=== PATIENT | male | born 1960 | race Caucasian/White ===

== ENCOUNTER 2021-02-21 02:37 | Day surgery (SDC) | payer OTHER, SELFPAY ==
[2021-02-09 15:03] VITALS: BMI 20.8
--- NOTE | 2021-02-18 17:45 | WPDANESEPP ---
Anes - Eval Pre Procedure Procedure: Operation Date: 02/21/21 09:45 Proposed Procedures p Screening Colonoscopy - Moshe Obando MD Date/Time: 02/18/21 17:45 Pre Op Diagnosis: hx of colon polyps Patient Data Age: 60 Gender: M Height: 1.65 m Weight: 56.8 kg Allergies Allergy/AdvReac Type Severity Reaction Status Date / Time No Known Allergies Allergy Unknown Verified 02/09/21 15:02 Home Medications Medication Instructions Recorded Confirmed Type sodium,potassium,mag sulfates See Rx Instructions .ROUTE 02/03/21 Rx [Suprep Bowel Prep Kit] .COMPLEX #1 ml aspirin 81 mg PO DAILY 02/09/21 02/09/21 History Patient hx anesthesia problems: none Family hx anesthesia problems: none PMFSH Past Medical History Medical History (Updated 02/18/21 @ 17:45 by Walker Queen DO) Psoriasis Surgical History Surgical History (Updated 02/18/21 @ 17:45 by Walker Queen DO) History of cholecystectomy Social History Social History Years smoked: 40 Smoking status: Current every day smoker Tobacco type: cigarettes Alcohol intake: current Alcohol use details: socially Substance use: never Substance use type: does not use Living arrangements: with family Spiritual care concerns: No Exam Day of Procedure 02/18/21 17:45
[2021-02-21 08:37] VITALS: BP 115/65; PULSE 69; RESP 20; TEMP 36.3; O2SAT 100
[2021-02-21] MEDS: LACTATED RINGERS 1,000 ML 150 ML IV CONT (08:51)
--- NOTE | 2021-02-21 08:58 | WPDGICN ---
Assessment and Plan Assessment and plan (1) Family history of colon cancer in father: Code(s): Z80.0 - Family history of malignant neoplasm of digestive organs Status: Acute Assessment and Plan: Patient has a family history of colon cancer in both father and brother. Plan is for surveillance colonoscopy every 5 years because of this family history. GI Consult Note Consult date/time: 02/21/21 08:58 HPI: Antwan Pal is a 60 year old male presents for screening colonoscopy. Patient's family history is significant both father and brother have had colon cancer. Patient himself had colon polyps at the time of last endoscopy 2015. 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 Patient states that his current weight appetite bowel movements are normal. He denies abdominal pain. He has had no bleeding. Review of Systems Review of Systems: All systems reviewed & are unremarkable except as noted in HPI and below PMFSH Past Medical History Medical History (Updated 02/21/21 @ 08:59 by Moshe Obando MD) Psoriasis Surgical History Surgical History (Updated 02/18/21 @ 17:45 by Walker Queen DO) History of cholecystectomy Social History Social History Years smoked: 40 Smoking status: Current every day smoker Tobacco type: cigarettes Alcohol intake: current Alcohol use details: socially Substance use: never Substance use type: does not use Living arrangements: with family Spiritual care concerns: No Meds Home Medications and Allergies Home Medications Medication Instructions Recorded Confirmed Type aspirin 81 mg PO DAILY 02/09/21 02/21/21 History Allergies Allergy/AdvReac Type Severity Reaction Status Date / Time No Known Allergies Allergy Unknown Verified 02/21/21 08:36 Vital Signs Vital Signs - 24 hr 02/21/21 08:37 Temperature 97.4 F L Pulse Rate 69 Respiratory Rate 20 Blood Pressure 115/65 Pulse Oximetry 100 Exam Narrative: Physical exam reveals patient to be alert. Vital signs stable. HEENT exam is unremarkable. Patient is anicteric. Lungs are clear to auscultation and percussion. Heart is without murmur or extra sounds. Abdominal exam bowel sounds are present soft nontender with no organomegaly. Digital external rectal exam is normal.
--- NOTE | 2021-02-21 09:06 | WPDANESEFPP ---
Anes - Eval Final PreProcedure Day of Procedure 02/21/21 09:06 Patient weight: normal Heart: regular rate and rhythm Lungs: clear to auscultation Airway: Mallampati scale class II Neurological: alert and oriented Last oral intake: >/= 8 hours ASA classification: III Emergent: no Anesthetic plan: proceed Anesthesia type and monitoring: general GIVS and standard monitoring Informed Consent: The patient's anesthetic plan and its attendant risks and benefits were discussed with the patient/family/POA. Questions were solicited and answers provided to the satisfaction of the patient/family/POA.
[2021-02-21 09:40] VITALS: BP 75/54; PULSE 65; RESP 20; O2SAT 100
[2021-02-21 09:50] VITALS: BP 76/53; PULSE 64; RESP 13; O2SAT 100
[2021-02-21 10:00] VITALS: BP 93/56; PULSE 62; RESP 25; O2SAT 100
== END 2021-02-21 10:14 | disposition home or self-care (01) ==
PROVIDERS: Visit Provider Internal Medicine Gastroenterology
PROC: 0DJD8ZZ Inspection of Lower Intestinal Tract, Via Natural or Artificial Opening Endoscopic (ICD-10-PCS; CPT 45378; principal; 2021-02-21 09:45)
DX: Z12.11 Encounter for screening for malignant neoplasm of colon (principal); K62.1 Rectal polyp; D12.8 Benign neoplasm of rectum; K64.8 Other hemorrhoids; K57.30 Diverticulosis of large intestine without perforation or abscess without bleeding; Z80.0 Family history of malignant neoplasm of digestive organs; L40.9 Psoriasis, unspecified; F17.210 Nicotine dependence, cigarettes, uncomplicated; Z90.49 Acquired absence of other specified parts of digestive tract; Z79.82 Long term (current) use of aspirin
CPT/HCPCS: 45385; 88305; J2704; J7120

== ENCOUNTER 2023-09-02 10:33 | Emergency (ER) | payer OTHER, SELFPAY ==
[2023-09-02 10:41] VITALS: BP 145/70; PULSE 72; RESP 16; TEMP 37; O2SAT 100
--- NOTE | 2023-09-02 11:19 | ED.DENTAL ---
HPI - Dental/Oral General Chief complaint: Dental/Oral Stated complaint: Dental Pain Time Seen by Provider: 09/02/23 11:19 Source: patient Mode of arrival: ambulatory Limitations: no limitations History of Present Illness HPI Narrative: 63-year-old male presents concern for dental pain. Reports lower anterior pain for 3-4 days. Reports he has been taking ibuprofen without relief. He reports he has dental decay, he has been unable to get in touch with his dentist. He denies trouble swallowing, fever, headaches. MD Complaint: tooth pain Related Data Home Medications Medication Instructions Recorded Confirmed aspirin 81 mg tablet 81 mg PO DAILY 02/09/21 09/02/23 Allergies Allergy/AdvReac Type Severity Reaction Status Date / Time No Known Allergies Allergy Unknown Verified 09/02/23 10:42 Review of Systems Review of Systems: CONSTITUTIONAL: Denies malaise, chills, sweats, or fever. EYES: Denies visual changes ENT: Denies rhinorrhea, congestion, sinus pain, otalgia or sore throat. Reports lower anterior dental pain in tooth number 23 CARDIOVASCULAR: Denies chest pain, palpitations RESPIRATORY: Denies cough or dyspnea. SKIN: Denies rash or itching. MUSCULOSKELETAL: Denies myalgia. NEUROLOGIC: Denies numbness, weakness, or headache. All systems reviewed & are unremarkable except as noted in HPI and below PMFSH Past Medical History Medical History (Updated 09/02/23 @ 11:23 by Yoselin Hernandez NP) Psoriasis Surgical History Surgical History (Updated 02/18/21 @ 17:45 by Walker Queen DO) History of cholecystectomy Social History Social History Years smoked: 40 Smoking status: Current every day smoker Tobacco type: cigarettes Alcohol intake: current Alcohol use details: socially Substance use: never Substance use type: does not use Living arrangements: with family Spiritual care concerns: No Comments At time of signature, agree with nursing past medical, surgical, social and family history. There is no relevant family history pertinent to the presenting complaint Exam Narrative: GENERAL: Well-appearing, well-nourished, and in no acute distress. HEAD: Normocephalic, atraumatic. EYES: PERRLA, sclera clear ENT: Nares clear, turbinates pink, no rhinorrhea or epistaxis. Mucous membranes moist. TM pearly pacheco with sharp light reflex bilaterally; no tragal tenderness. Oropharynx without erythema or lesions. Tonsils not enlarged and without exudate. Missing teeth, broken teeth, caries, no periapical or gingival abscesses noted, no facial swelling noted NECK: Supple. No lymphadenopathy. CHEST: No respiratory distress. Speaks in full sentences. HEART: Regular rate and rhythm. SKIN: Warm, dry, no visible rash. NEURO: Alert and oriented x3. PSYCH: Normal mood and affect Course Course Emergency Course: Patient is aware of diagnosis, understands and agrees to treatment plan. Anticipatory guidance given. Patient agrees to follow-up as directed and is aware of reasons to seek care at the emergency department. Portions of this record may have been created with voice recognition software Level of Care: Express Care Visit Vital Signs Vital signs: Vital Signs Temperature 98.6 F 09/02/23 10:41 Pulse Rate 72 09/02/23 10:41 Respiratory Rate 16 09/02/23 10:41 Blood Pressure 145/70 H 09/02/23 10:41 Pulse Oximetry 100 09/02/23 10:41 Oxygen Delivery Room Air 09/02/23 10:41 Temperature 98.6 F 09/02/23 10:41 Pulse Rate 72 09/02/23 10:41 Respiratory Rate 16 09/02/23 10:41 Blood Pressure 145/70 H 09/02/23 10:41 Pulse Oximetry 100 09/02/23 10:41 Oxygen Delivery Room Air 09/02/23 10:41 Reviewed. MDM - Dental/Oral MDM Narrative Medical decision making narrative: Patients pain and complaint coupled with physical findings are consistant with dentalgia. There are no focal signs of space occupying lesions that are compromising to t
== END 2023-09-02 11:30 | disposition home or self-care (01) ==
PROVIDERS: Emergency Provider Nurse Practitioner
DX: K08.89 Other specified disorders of teeth and supporting structures (principal); F17.210 Nicotine dependence, cigarettes, uncomplicated; Z79.82 Long term (current) use of aspirin
CPT/HCPCS: 99213; G0463